=== PATIENT | male | born 1995 | race Two or more races ===

== ENCOUNTER 2017-02-21 03:23 | Emergency (ER) | payer MEDICAID ==
[~2017-02-21] VITALS: Ht 167.6 cm; Wt 79.4 kg
[2017-02-21 04:37] LABS: APPEARANCE,URINE SLIGHTLY CLOUDY; KETONES,URINE NEGATIVE (NEGATIVE); LEUKOCYTE ESTERASE ,URINE 3+ (NEGATIVE); NITRITE,URINE POSITIVE (NEGATIVE); PH,URINE 7 (4.5-8.0); PROTEIN,URINE NEGATIVE (NEGATIVE); UROBILINOGEN,URINE NORMAL MG/DL (0.0-1.0)
[2017-02-21] MEDS ORDERED: Lidocaine 1% MPF 10mg/ml 5ml IM ONE (04:45)
[2017-02-21] MEDS ORDERED: Azithromycin 250mg tab ORAL ONE (04:45)
[2017-02-21 04:49] LABS: BACTERIA,URINE MANY /HPF; SQUAMOUS EPITHELIAL CELL,UR FEW /LPF (NONE/OCC); WBC,URINE TNTC /HPF (0 - 0)
[2017-02-21 05:00] VITALS: BP 118/72
[2017-02-21] MEDS ORDERED: KEFLEX500 MG ORAL (05:10)
[2017-02-21 05:20] VITALS: BP 118/72
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
[2017-02-25] MEDS ORDERED: CIPROFLOXACIN500 M2 ORAL (08:29)
== END 2017-02-21 05:20 | disposition home or self-care (01) ==
LOC: EMR 04:21
DX: N39.0 Urinary tract infection, site not specified (principal); R32 Unspecified urinary incontinence
CPT/HCPCS: 81003; 87086; 87181; 87590; 96372; 99283; J0696; Q0144

== ENCOUNTER 2017-06-17 02:03 | Emergency (ER) | payer MEDICAID ==
[~2017-06-17] VITALS: Ht 167.6 cm; Wt 85.7 kg
[~2017-06-17 02:03] MED LIST: CIPROFLOXACIN500 M2 ORAL; KEFLEX500 MG ORAL
[2017-06-17] MEDS ORDERED: Norco 5mg/325mg tab ORAL ONE (02:30)
[2017-06-17] MEDS ORDERED: HYDROCODON-ACE1 EA15 ORAL (02:31)
--- NOTE | 2017-06-17 02:32 | Emergency Room Report ---
History of Present Illness General Chief Complaint: Male Urogenital Problems Source: Patient Present Illness HPI Is a 21-year-old male who presents with chief complaint of dysuria. Patient has urethral stricture and had dilation done at [facility] today. He was discharged home with a leg bag. He was prescribe Pyridium and Levaquin. He was also prescribed pain medication but it was not filled. He said that the doctor forgot to date the prescription so none was given to him. He presents with chief complaint of burning when he urinates. No fever chills but no nausea no vomiting. Allergies: Coded Allergies: No Known Allergies (Unverified , 02/21/17) Patient History Past Medical History: see triage record, old chart reviewed Past Surgical History: other Pertinent Family History: none Social History: Denies: smoking Immunizations: other Reviewed Nursing Documentation: PMH: Agreed, PSxH: Agreed Nursing Documentation-PMH Past Medical History: No History, Except For Review of Systems Eye: Denies: blurred vision, eye pain ENT: Denies: ear pain, nose congestion, throat swelling Respiratory: Denies: cough, shortness of breath Cardiovascular: Denies: chest pain, palpitations Gastrointestinal: Denies: abdominal pain, diarrhea, nausea, vomiting Genitourinary: Reports: dysuria Musculoskeletal: Denies: back pain, joint pain Skin: Denies: rash Neurological: Denies: headache, numbness Endocrine: Denies: increased thirst, increased urine Hematologic/Lymphatic: Denies: easy bruising All Other Systems: negative except mentioned in HPI Physical Exam Vital Signs Date Time Temp Pulse Resp B/P Pulse Ox O2 Delivery O2 Flow Rate FiO2 06/17/17 02:11 99.3 118 16 118/79 99 Room Air vitals normal except for tachycardia Sp02 EP Interpretation: reviewed, normal General Appearance: well appearing, no apparent distress, alert Head: normocephalic, atraumatic Eyes: bilateral eye EOMI, bilateral eye PERRL ENT: hearing grossly normal, normal pharynx Neck: full range of motion, supple, no meningismus Respiratory: chest non-tender, lungs clear, normal breath sounds Cardiovascular #1: regular rate, rhythm, no murmur Gastrointestinal: normal bowel sounds, non tender, no mass, no organomegaly, no bruit, non-distended Genitourinary: other - [place] intact. No leak. Musculoskeletal: back normal, gait/station normal, normal range of motion Psychiatric: mood/affect normal Skin: warm/dry Medical Decision Making Diagnostic Impression: Primary Impression: Dysuria ER Course Patient with dysuria secondary to new Zur[place]. No evidence of infection. He is on antibiotics already. No evidence of obstruction. We'll prescribe pain medication. We'll discharge home. Last Vital Signs Date Time Temp Pulse Resp B/P Pulse Ox O2 Delivery O2 Flow Rate FiO2 06/17/17 02:11 99.3 118 16 118/79 99 Room Air Status: improved Disposition: HOME, SELF-CARE Condition: Stable Scripts Hydrocodone/Acetaminophen 5-325* (HYDROCODONE/ACETAMINOPHEN 5-325*) 1 Each Tablet 1 TAB ORAL Q6H Y for For Pain, #10 TAB 0 Refills Prov: LUCRETIA RIDDLE M.D. 06/17/17 Referrals: [facility],REFERRING (PCP) Additional Instructions: Followup with urologist as scheduled. Return if symptom worsen. Take antibiotics. LUCRETIA RIDDLE M.D. Jun 17, 2017 02:32
[2017-06-17 02:53] VITALS: BP 118/79
== END 2017-06-17 02:53 | disposition home or self-care (01) ==
LOC: EMR 02:25
DX: T83.84XA Pain due to genitourinary prosthetic devices, implants and grafts, initial encounter (principal); Y84.6 Urinary catheterization as the cause of abnormal reaction of the patient, or of later complication, without mention of misadventure at the time of the procedure; Y92.89 Other specified places as the place of occurrence of the external cause
CPT/HCPCS: 99283

== ENCOUNTER 2017-06-29 | Emergency (ER) | payer MEDICAID ==
[~2017-06-29] VITALS: Ht 170.2 cm; Wt 85.7 kg
[~2017-06-29] MED LIST changes: +HYDROCODON-ACE1 EA15 ORAL
[2017-06-29] MEDS ORDERED: PHENAZOPYRIDIN100 MG ORAL (00:14)
[2017-06-29] MEDS ORDERED: LEVOFLOXACIN500 MG ORAL (00:14)
[2017-06-29 00:31] LABS: APPEARANCE,URINE SLIGHTLY CLOUDY; KETONES,URINE NEGATIVE (NEGATIVE); LEUKOCYTE ESTERASE ,URINE 2+ (NEGATIVE); NITRITE,URINE POSITIVE (NEGATIVE); PH,URINE 7 (4.5-8.0); PROTEIN,URINE 4+ (NEGATIVE); UROBILINOGEN,URINE 4 MG/DL (0.0-1.0)
[2017-06-29 00:40] LABS: BACTERIA,URINE FEW /HPF; RBC,URINE TNTC /HPF (0 - 0)
[2017-06-29 00:43] LABS: ICTOTEST POSITIVE
[2017-06-29] MEDS ORDERED: CIPRO500 MG PO (01:17)
[2017-06-29] MEDS ORDERED: CLOTRIMAZOLE15 GM TOPIC (01:18)
[2017-06-29 01:37] VITALS: BP 149/92
--- NOTE | 2017-06-29 01:40 | Emergency Room Report ---
History of Present Illness General Chief Complaint: Male Urogenital Problems Source: Patient Present Illness HPI 21YOM with "crusts" on penis Has indwelling capone following surgery for stricture last month Was seen in ED on day of surgery for dysuria - was already on Abx at the time He is not clear if still on Abx or not He has Urology followup appointment later today Denies urinary obstruction, abd pain, nausea/vomiting, fever/chills Allergies: Coded Allergies: No Known Allergies (Unverified , 02/21/17) Patient History Past Medical History: none Past Surgical History: other - Urinary stricture surgery Pertinent Family History: none Social History: Denies: alcohol use, drug use, smoking Immunizations: UTD Reviewed Nursing Documentation: PMH: Agreed, PSxH: Agreed Nursing Documentation-PMH Past Medical History: No History, Except For Review of Systems All Other Systems: negative except mentioned in HPI Physical Exam Vital Signs Date Time Temp Pulse Resp B/P Pulse Ox O2 Delivery O2 Flow Rate FiO2 06/29/17 00:07 99.0 82 16 149/92 99 Room Air Sp02 EP Interpretation: reviewed, normal General Appearance: normal inspection, well appearing, no apparent distress, alert, GCS 15, non-toxic Head: normocephalic, atraumatic Eyes: bilateral eye EOMI, bilateral eye PERRL ENT: normal ENT inspection, hearing grossly normal, normal voice Neck: normal inspection, full range of motion, supple, no bony tend Respiratory: normal inspection Cardiovascular #1: regular rate, rhythm, no edema Gastrointestinal: normal inspection, normal bowel sounds, non tender, soft, no guarding, no hernia Genitourinary: other - Capone bag in place, intact. Uncircumcised penis. There is balanitis Musculoskeletal: normal inspection, back normal, normal range of motion, Rayshawn' s Sign negative Neurologic: normal inspection, alert, responsive, speech normal Psychiatric: normal inspection, judgement/insight normal, mood/affect normal Skin: normal inspection, normal color, no rash Medical Decision Making Diagnostic Impression: Primary Impression: UTI (urinary tract infection) Qualified Codes: T83.511D - Infection and inflammatory reaction due to indwelling urethral catheter, subsequent encounter; N39.0 - Urinary tract infection, site not specified Additional Impression: Balanitis ER Course UA grossly infected. Based on past Urine Cx, susceptible to Cipro. Given Rx Also topical cream anti-fungal for balanitis Has Urology followup today DC home Last Vital Signs Date Time Temp Pulse Resp B/P Pulse Ox O2 Delivery O2 Flow Rate FiO2 06/29/17 00:07 99.0 82 16 149/92 99 Room Air Status: improved Disposition: HOME, SELF-CARE Condition: Improved Scripts Clotrimazole* (LOTRIMIN*) 15 Gm Cream..g. 1 APPLIC TOPIC TWICE A DAY for 7 Days, #1 UNIT Prov: KERWIN PLATT M.D. 06/29/17 Ciprofloxacin* (CIPRO*) 500 Mg Tablet 500 MG PO BID for 7 Days, #14 TAB Prov: KERWIN PLATT M.D. 06/29/17 Referrals: [facility],REFERRING (PCP) Patient Instructions: Urinary Tract Infection KERWIN PLATT M.D. Jun 29, 2017 01:40
== END 2017-06-29 01:43 | disposition home or self-care (01) ==
LOC: EMR 00:25
DX: N39.0 Urinary tract infection, site not specified (principal); N48.1 Balanitis
CPT/HCPCS: 80300; 81003; 99283; 99284

== ENCOUNTER 2017-07-01 11:20 | Emergency (ER) | payer MEDICAID ==
[~2017-07-01] VITALS: Ht 167.6 cm; Wt 83.5 kg
[~2017-07-01 11:20] MED LIST changes: +CIPRO500 MG PO; +CLOTRIMAZOLE15 GM TOPIC; +LEVOFLOXACIN500 MG ORAL; +PHENAZOPYRIDIN100 MG ORAL
[2017-07-01] MEDS ORDERED: LACTULOSE20 GM/301 ORAL (12:09)
[2017-07-01 12:16] VITALS: BP 108/70
--- NOTE | 2017-07-02 07:21 | Emergency Room Report ---
History of Present Illness General Chief Complaint: Constipation Source: Patient, Medical Record Present Illness HPI This is a 21-year-old male who presented after increased constipation. Patient recently had surgery. Patient was noted to have a recent urethral stricture surgery. He had been taking narcotic pain medications. Patient had been having some bowel movements however he noted that he was having increased difficulty with a stools. He had been prescribed stool softeners. Patient not been vomiting or having any fever. He denied any pain. Allergies: Coded Allergies: No Known Allergies (Unverified , 02/21/17) Patient History Reviewed Nursing Documentation: PMH: Agreed, PSxH: Agreed Nursing Documentation-PM Past Medical History: No History, Except For Review of Systems All Other Systems: negative except mentioned in HPI Physical Exam Vital Signs Date Time Temp Pulse Resp B/P Pulse Ox O2 Delivery O2 Flow Rate FiO2 07/01/17 11:50 99.0 77 18 114/88 98 Room Air General Appearance: well appearing, no apparent distress, alert, GCS 15 Head: normocephalic, atraumatic ENT: hearing grossly normal, normal voice Neck: full range of motion, supple Respiratory: normal inspection, no respiratory distress, speaking full sentences Gastrointestinal: normal inspection, non tender Musculoskeletal: no calf tenderness Neurologic: normal inspection, alert, oriented x3, cane piler III-XII nml as tested, normal gait Psychiatric: mood/affect normal Skin: no rash Medical Decision Making Diagnostic Impression: Primary Impression: Constipation ER Course Patient presented for abdominal pain. Differential diagnoses included ischemic bowel, appendicitis, perforated viscus, abdominal aortic aneurysm, inferior myocardial infarction, viral gastroenteritis Patient's benign exam and does not appear to require any further imaging or laboratory testing at this time. Patient was given prescription for lactulose due to constipation which is likely opiate induced. The patient is advised to follow up with primary care doctor in 1-2 days. Patient is advised to return if any worsening condition or if any changes in status that are concerning. Last Vital Signs Date Time Temp Pulse Resp B/P Pulse Ox O2 Delivery O2 Flow Rate FiO2 07/01/17 12:16 71 17 108/70 98 Room Air 07/01/17 11:50 99.0 Status: improved Disposition: HOME, SELF-CARE Condition: Improved Scripts Lactulose (LACTULOSE*) 20 Gm/30 Ml Solution 30 ML ORAL THREE TIMES A DAY, #150 ML 0 Refills Prov: Emory Davidson 07/01/17 Patient Instructions: Constipation, Adult Emory Davidson Jul 02, 2017 07:21
== END 2017-07-01 13:16 | disposition home or self-care (01) ==
LOC: EMR 12:06
DX: K59.00 Constipation, unspecified (principal)
CPT/HCPCS: 99283

== ENCOUNTER 2020-06-11 16:28 | Inpatient (IN) | payer MEDICAID ==
[~2020-06-11] VITALS: Ht 167.6 cm; Wt 103.4 kg
[~2020-06-11 16:28] MED LIST changes: +LACTULOSE20 GM/301 ORAL
[2020-06-11 16:32] VITALS: BP 125/81
[2020-06-11] MEDS ORDERED: IBUPROFEN600 M1 ORAL (16:38)
[2020-06-11] MEDS ORDERED: NITROFURANTOIN100 M2 ORAL (16:38)
[2020-06-11] MEDS ORDERED: cefTRIAXone 1 GM in NS 55 ML IVPB ONE (16:45)
--- NOTE | 2020-06-11 17:26 | Diagnostic Imaging Report ---
EXAM: CT Abdomen and Pelvis Without Intravenous Contrast CLINICAL HISTORY: PAIN TECHNIQUE: Axial computed tomography images of the abdomen and pelvis without intravenous contrast. CTDI is 16 mGy and DLP is 904 mGy-cm. One or more of the following dose reduction techniques were used: automated exposure control, adjustment of the mA and/or kV according to patient size, use of iterative reconstruction technique. COMPARISON: No relevant prior studies available. FINDINGS: Lung bases: Unremarkable. ABDOMEN: Liver: Unremarkable. Gallbladder and bile ducts: Unremarkable. Pancreas: Unremarkable. Spleen: Unremarkable. Adrenals: Unremarkable. Kidneys and ureters: Unremarkable. No obstructing stones. No hydronephrosis. Stomach and bowel: Acute diverticulitis of the descending/sigmoid colon. Mild inflammatory changes. No perforation or abscess. PELVIS: Appendix: No findings to suggest acute appendicitis. Bladder: Circumferential mucosal thickening of the bladder as can be seen in setting of cystitis. No stones. Reproductive: Unremarkable as visualized. ABDOMEN and PELVIS: Intraperitoneal space: Mesenteric panniculitis. No free air. No significant fluid collection. Bones/joints: No acute fracture. Soft tissues: Unremarkable. Vasculature: Unremarkable. Lymph nodes: Unremarkable. IMPRESSION: 1. Acute diverticulitis of the descending/sigmoid colon. Mild inflammatory changes. No perforation or abscess. 2. Circumferential mucosal thickening of the bladder as can be seen in setting of cystitis. 3. Mesenteric panniculitis.
[2020-06-11 17:28] LABS: APPEARANCE,URINE CLEAR; BILIRUBIN, URINE NEGATIVE (NEGATIVE); GLUCOSE, URINE (UA) NEGATIVE (NEGATIVE); KETONES,URINE NEGATIVE (NEGATIVE); LEUKOCYTE ESTERASE ,URINE 1+ (NEGATIVE); NITRITE,URINE NEGATIVE (NEGATIVE); PH,URINE 6.5 (4.5-8.0); PROTEIN,URINE NEGATIVE (NEGATIVE); UROBILINOGEN,URINE 1 MG/DL (0.0-1.0)
[2020-06-11 17:31] LABS: EOSINOPHILS % (AUTO) 1.1 % (0.0-3.0); HEMATOCRIT 47.8 % (42.0-52.0); HEMOGLOBIN 15.6 G/DL (14.2-18.0); LYMPHOCYTES % (AUTO) 9.1 % (20.0-45.0); MEAN CORPUSCULAR VOLUME 98 FL (80-99); MONOCYTES % (AUTO) 6.8 % (1.0-10.0); NEUTROPHILS % (AUTO) 82.1 % (45.0-75.0); PLATELET COUNT 256 K/UL (150-450); RED BLOOD COUNT 4.85 M/UL (4.70-6.10); RED CELL DISTRIBUTION WIDTH 12.5 % (11.6-14.8); WHITE BLOOD COUNT 13.2 K/UL (4.8-10.8)
[2020-06-11 17:32] LABS: COLOR,URINE YELLOW
[2020-06-11 17:35] LABS: ANION GAP 7 mmol/L (5-15); BLOOD UREA NITROGEN 9 mg/dL (7-18); CALCIUM 9.6 MG/DL (8.5-10.1); CARBON DIOXIDE 33 MMOL/L (21-32); CHLORIDE 103 MMOL/L (98-107); CREATININE 1.2 MG/DL (0.55-1.30); POTASSIUM 3.9 MMOL/L (3.5-5.1); SODIUM 143 MMOL/L (136-145)
[2020-06-11 17:39] LABS: ALANINE AMINOTRANSFERASE 21 U/L (12-78); ALBUMIN 4.3 G/DL (3.4-5.0); ALBUMIN/GLOBULIN RATIO 1.2 (1.0-2.7); ALKALINE PHOSPHATASE 75 U/L (46-116); ASPARTATE AMINO TRANSFERASE 15 U/L (15-37); BILIRUBIN,TOTAL 0.9 MG/DL (0.2-1.0)
[2020-06-11 17:40] LABS: INR 0.9 (0.9-1.1)
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
[2020-06-11] MEDS ORDERED: metroNIDAZOLE 500mg tab ORAL ONE (18:00)
[2020-06-11] MEDS ORDERED: Morphine Sulfate 4mg/ml Inj (IV USE ONLY) IVP ONE (18:00)
[2020-06-11 18:22] VITALS: BP 126/73
[2020-06-11 20:45] VITALS: BP 126/77
[2020-06-11] MEDS ORDERED: Albuterol/Ipratropium 3ml neb HHN PRN (20:45)
[2020-06-11] MEDS ORDERED: Miralax 17gm pkt ORAL PRN (20:45)
[2020-06-11] MEDS: Cefepime HCl 2 GM in D5W 110 ML IV SCH (22:08)
[2020-06-11] MEDS: Heparin 5000 units/ml inj SUBQ SCH (22:08)
[2020-06-11] MEDS: Vancomycin 1.5gm/NS Premix IVPB SCH (23:00)
[2020-06-12] MEDS ORDERED: Vancomycin 1 GM in D5W 275 ML IV SCH (00:30)
[2020-06-12 00:40] LABS: APPEARANCE,URINE CLEAR; BILIRUBIN, URINE NEGATIVE (NEGATIVE); COLOR,URINE PALE YELLOW; GLUCOSE, URINE (UA) NEGATIVE (NEGATIVE); KETONES,URINE NEGATIVE (NEGATIVE); LEUKOCYTE ESTERASE ,URINE NEGATIVE (NEGATIVE); NITRITE,URINE NEGATIVE (NEGATIVE); PH,URINE 7 (4.5-8.0); PROTEIN,URINE NEGATIVE (NEGATIVE); UROBILINOGEN,URINE NORMAL MG/DL (0.0-1.0)
[2020-06-12 04:00] VITALS: BP 124/76
[2020-06-12 06:22] LABS: BASOPHILS % (AUTO) 0.7 % (0.0-2.0); EOSINOPHILS % (AUTO) 0.4 % (0.0-3.0); HEMATOCRIT 43.2 % (42.0-52.0); HEMOGLOBIN 14.5 G/DL (14.2-18.0); LYMPHOCYTES % (AUTO) 14.9 % (20.0-45.0); MEAN CORPUSCULAR VOLUME 98 FL (80-99); MONOCYTES % (AUTO) 7.9 % (1.0-10.0); NEUTROPHILS % (AUTO) 76.1 % (45.0-75.0); PLATELET COUNT 235 K/UL (150-450); RED CELL DISTRIBUTION WIDTH 11.8 % (11.6-14.8); WHITE BLOOD COUNT 13.7 K/UL (4.8-10.8)
[2020-06-12 07:14] LABS: ALANINE AMINOTRANSFERASE 27 U/L (12-78); ALBUMIN 3.6 G/DL (3.4-5.0); ALKALINE PHOSPHATASE 63 U/L (46-116); ANION GAP 8 mmol/L (5-15); ASPARTATE AMINO TRANSFERASE 15 U/L (15-37); BILIRUBIN,TOTAL 1.1 MG/DL (0.2-1.0); BLOOD UREA NITROGEN 9 mg/dL (7-18); CARBON DIOXIDE 31 MMOL/L (21-32); CHLORIDE 104 MMOL/L (98-107); CREATININE 1.1 MG/DL (0.55-1.30); POTASSIUM 3.7 MMOL/L (3.5-5.1); SODIUM 143 MMOL/L (136-145)
[2020-06-12 08:00] VITALS: BP 104/64
[2020-06-12 08:10] LABS: BILIRUBIN,DIRECT 0.2 MG/DL (0.0-0.3)
[2020-06-12] MEDS: Cefepime HCl 2 GM in D5W 110 ML IV SCH (09:14)
[2020-06-12] MEDS: Heparin 5000 units/ml inj SUBQ SCH ×2 (09:18→20:26)
[2020-06-12] MEDS: Vancomycin 1.5gm/NS Premix IVPB SCH (10:56)
[2020-06-12 12:00] VITALS: BP 103/56
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
[2020-06-12 16:00] VITALS: BP_SYST 102; BP_SYST 137; BP_DIAS 66; BP_DIAS 91
--- NOTE | 2020-06-12 19:38 | History & Physical ---
History and Physical History & Physicial Dictated for Int Med-Dr. Barrera no. [id number]. Noah Hanson MD Jun 12, 2020 19:38
[2020-06-12 20:00] VITALS: BP 119/60
[2020-06-12] MEDS: cefTRIAXone 2 GM in D5W 55 ML IVPB SCH (20:25)
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
[2020-06-13] VITALS: BP 110/60
[2020-06-13 04:00] VITALS: BP 135/91
[2020-06-13 06:19] LABS: ANION GAP 7 mmol/L (5-15); BLOOD UREA NITROGEN 9 mg/dL (7-18); CALCIUM 9.3 MG/DL (8.5-10.1); CARBON DIOXIDE 32 MMOL/L (21-32); CHLORIDE 103 MMOL/L (98-107); CREATININE 1.1 MG/DL (0.55-1.30); POTASSIUM 3.6 MMOL/L (3.5-5.1); SODIUM 142 MMOL/L (136-145)
[2020-06-13 06:24] LABS: BASOPHILS % (AUTO) 0.7 % (0.0-2.0); EOSINOPHILS % (AUTO) 1.9 % (0.0-3.0); HEMATOCRIT 43.9 % (42.0-52.0); HEMOGLOBIN 14.6 G/DL (14.2-18.0); LYMPHOCYTES % (AUTO) 21.9 % (20.0-45.0); MEAN CORPUSCULAR VOLUME 98 FL (80-99); MONOCYTES % (AUTO) 7.3 % (1.0-10.0); NEUTROPHILS % (AUTO) 68.1 % (45.0-75.0); PLATELET COUNT 240 K/UL (150-450); RED BLOOD COUNT 4.49 M/UL (4.70-6.10); RED CELL DISTRIBUTION WIDTH 11.8 % (11.6-14.8); WHITE BLOOD COUNT 9.9 K/UL (4.8-10.8)
[2020-06-13 08:00] VITALS: BP 130/76
[2020-06-13] MEDS: Heparin 5000 units/ml inj SUBQ SCH ×2 (08:38→20:41)
--- NOTE | 2020-06-13 13:02 | General Progress Note ---
Assessment/Plan Problem List: (1) UTI (urinary tract infection) ICD Codes: N39.0 - Urinary tract infection, site not specified SNOMED: 11066860 (2) Sigmoid diverticulitis ICD Codes: K57.32 - Diverticulitis of large intestine without perforation or abscess without bleeding SNOMED: 983281359 (3) Obesity ICD Codes: E66.9 - Obesity, unspecified SNOMED: 404805438, 044157248 (4) Cystitis ICD Codes: N30.90 - Cystitis, unspecified without hematuria SNOMED: 54375232 (5) Panniculitis ICD Codes: M79.3 - Panniculitis, unspecified SNOMED: 09320030 Assessment/Plan: abx pain control ivf needs out patient colonoscopy in 8 weeks Subjective ROS Limited/Unobtainable: Yes Allergies: Coded Allergies: No Known Allergies (Unverified , 02/21/17) Objective Last 24 Hour Vital Signs Date Time Temp Pulse Resp B/P (MAP) Pulse Ox O2 Delivery O2 Flow Rate FiO2 06/13/20 09:00 Room Air 06/13/20 08:00 97.3 70 20 130/76 (94) 95 06/13/20 04:00 98.6 71 20 135/91 (106) 97 06/13/20 00:00 98.0 70 20 110/60 (77) 97 06/12/20 21:00 Room Air 06/12/20 20:00 98.4 68 20 119/60 (79) 98 06/12/20 16:00 98.7 66 20 102/66 (78) 98 Intake and Output 06/12/20 06/13/20 19:00 07:00 Intake Total 120 ml 675 ml Balance 120 ml 675 ml Intake Oral 420 ml IV Total 255 ml Other 120 ml # Voids 6 Laboratory Tests 06/13/20 05:10: White Blood Count 9.9, Red Blood Count 4.49L, Hemoglobin 14.6, Hematocrit 43.9, Mean Corpuscular Volume 98, Mean Corpuscular Hemoglobin 32.5H, Mean Corpuscular Hemoglobin Concent 33.2, Red Cell Distribution Width 11.8, Platelet Count 240, Mean Platelet Volume 7.8, Neutrophils (%) (Auto) 68.1, Lymphocytes (%) (Auto) 21.9, Monocytes (%) (Auto) 7.3, Eosinophils (%) (Auto) 1.9, Basophils (%) (Auto ) 0.7, Sodium Level 142, Potassium Level 3.6, Chloride Level 103, Carbon Dioxide Level 32, Anion Gap 7, Blood Urea Nitrogen 9, Creatinine 1.1, Estimat Glomerular Filtration Rate > 60, Glucose Level 108H, Calcium Level 9.3 Height (Feet): 5 Height (Inches): 6.00 Weight (Pounds): 228 General Appearance: alert EENT: PERRL/EOMI Neck: supple Cardiovascular: normal rate Respiratory/Chest: decreased breath sounds Abdomen: normal bowel sounds, non tender, soft Extremities: non-tender Bunny Banegas MD Jun 13, 2020 13:02
--- NOTE | 2020-06-13 13:25 | Diagnostic Imaging Report ---
Indication: Right hand pain in forearm pain, swelling, numbness Technique: Grayscale and duplex images of the bilateral upper extremity veins Comparison: none Findings: Bilaterally, grayscale and duplex images demonstrate no evidence of intraluminal thrombus. Normal phasic Doppler waveforms. Normal compressibility. Note that the right forearm cephalic vein that contains an IV cannula is also patent. Impression: No evidence of upper extremity venous thrombus, bilaterally No evidence of thrombosis related to upper extremity IV cannula on the right
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
[2020-06-13 16:00] VITALS: BP 113/60
--- NOTE | 2020-06-13 17:30 | Internal Med Progress Note ---
Subjective Date of Service: Jun 13, 2020 Physician Name Noah Hanson Attending Physician Justo Barrera MD Current Medications Medications (Trade) Dose Ordered Sig/Leroy Route PRN Reason Start Time Stop Time Status Last Admin Dose Admin Acetaminophen (Tylenol) 650 mg Q4H PRN ORAL fever (T>100.5F) 06/11/20 20:45 07/11/20 20:44 06/12/20 01:25 Albuterol/ Ipratropium (Albuterol/ Ipratropium) 3 ml Q4H PRN HHN Shortness of Breath 06/11/20 20:45 06/16/20 20:44 Ceftriaxone Sodium 2 gm/ Dextrose 55 ml @ 110 mls/hr Q24H IVPB 06/12/20 21:00 06/19/20 20:59 06/12/20 20:25 Heparin Sodium (Porcine) (Heparin 5000 units/ml) 5,000 units EVERY 12 HOURS SUBQ 06/11/20 21:00 07/26/20 20:59 06/13/20 08:38 Metronidazole 100 ml @ 100 mls/hr Q8HR IVPB 06/12/20 14:15 06/19/20 14:14 06/13/20 13:58 Ondansetron HCl (Zofran) 4 mg Q6H PRN IVP Nausea & Vomiting 06/11/20 20:45 07/11/20 20:44 Polyethylene Glycol (Miralax) 17 gm DAILYPRN PRN ORAL Constipation 06/11/20 20:45 07/11/20 20:44 06/13/20 16:53 Temazepam (Restoril) 15 mg HSPRN PRN ORAL Insomnia 06/11/20 20:45 06/18/20 20:44 Allergies: Coded Allergies: No Known Allergies (Unverified , 02/21/17) ROS Limited/Unobtainable: No Constitutional: Reports: no symptoms HEENT: Reports: no symptoms Cardiovascular: Reports: no symptoms Respiratory: Reports: no symptoms Gastrointestinal/Abdominal: Reports: abdominal pain Genitourinary: Reports: no symptoms Neurologic/Psychiatric: Reports: no symptoms Subjective 24 YO M admitted with abdominal pain. Now diverticulitis. Cover for Int Ady Barrera Objective Last Vital Signs Date Time Temp Pulse Resp B/P (MAP) Pulse Ox O2 Delivery O2 Flow Rate FiO2 06/13/20 16:00 97.4 88 20 113/60 (77) 98 06/13/20 09:00 Room Air Laboratory Tests Test 06/13/20 05:10 White Blood Count 9.9 K/UL (4.8-10.8) Red Blood Count 4.49 M/UL (4.70-6.10) L Hemoglobin 14.6 G/DL (14.2-18.0) Hematocrit 43.9 % (42.0-52.0) Mean Corpuscular Volume 98 FL (80-99) Mean Corpuscular Hemoglobin 32.5 PG (27.0-31.0) H Mean Corpuscular Hemoglobin Concent 33.2 G/DL (32.0-36.0) Red Cell Distribution Width 11.8 % (11.6-14.8) Platelet Count 240 K/UL (150-450) Mean Platelet Volume 7.8 FL (6.5-10.1) Neutrophils (%) (Auto) 68.1 % (45.0-75.0) Lymphocytes (%) (Auto) 21.9 % (20.0-45.0) Monocytes (%) (Auto) 7.3 % (1.0-10.0) Eosinophils (%) (Auto) 1.9 % (0.0-3.0) Basophils (%) (Auto) 0.7 % (0.0-2.0) Sodium Level 142 MMOL/L (136-145) Potassium Level 3.6 MMOL/L (3.5-5.1) Chloride Level 103 MMOL/L (98-107) Carbon Dioxide Level 32 MMOL/L (21-32) Anion Gap 7 mmol/L (5-15) Blood Urea Nitrogen 9 mg/dL (7-18) Creatinine 1.1 MG/DL (0.55-1.30) Estimat Glomerular Filtration Rate > 60 mL/min (>60) Glucose Level 108 MG/DL (74-106) H Calcium Level 9.3 MG/DL (8.5-10.1) Microbiology Date/Time Source Procedure Growth Status 06/11/20 22:20 Blood Blood Culture - Preliminary NO GROWTH AFTER 24 HOURS Resulted 06/11/20 22:15 Blood Blood Culture - Preliminary NO GROWTH AFTER 24 HOURS Resulted 06/12/20 00:30 Indwelling Cath Urine Culture - Preliminary NO GROWTH AFTER 24 HOURS Resulted 06/11/20 17:15 Urine,Clean Catch Urine Culture - Preliminary NO GROWTH AFTER 24 HOURS Resulted Intake and Output 06/12/20 06/13/20 19:00 07:00 Intake Total 120 ml 675 ml Balance 120 ml 675 ml Intake Oral 420 ml IV Total 255 ml Other 120 ml # Voids 6 Objective PHYSICAL EXAMINATION: GENERAL: The patient is well-developed and well-nourished male, in no apparent distress. HEENT: Eyes, pupils are equal and responsive to light and accommodation. Extraocular movements are intact. NECK: Supple without lymphadenopathy. CHEST: Lungs are clear to auscultation bilaterally without wheezes or rales. CARDIOVASCULAR: Regular rhythm and rate. S1, S2 normal without murmurs, rubs, or gallops. ABDOMEN: Soft, nontender, with positive bowel sounds. There is voluntary guarding on the left flank. Otherwise, without rebound or guarding noted. EXTREMITIES: Negative for clubbing, cyanosis, or edema. RECTAL/GENITAL: Not performed. NEUROLOGICAL: Cranial nerves II through XII are grossly intact without focal deficits. Motor strength is 5/5 bilaterally. Deep tendon reflexes are 2+ plantar. Assessment/Plan Assessment/Plan ASSESSMENT: This is a 24-year-old male. 1. Left flank pain. 2. Acute diverticulitis. 3. Acute mesenteric panniculitis. 4. History of frequent urinary tract infection. 5. History urethral stricture. TREATMENT: 1. Diverticulitis/mesenteric panniculitis. An Infectious Disease consultation has been obtained with Dr. Enciso. The patient is currently on ceftriaxone and Flagyl. We will follow recommendations of Infectious Diseases. A Gastroenterology consultation obtained with Dr. Bunny Banegas. The patient will require colonoscopy as an outpatient in 8 weeks per GI. 2. Frequent urinary tract infection. The patient is followed as an outpatient by Dr. Bruce with Urology. 3. History of urethral stricture. As above the patient is followed as an outpatient by Dr. Bruce. Noah Hanson MD Jun 13, 2020 17:29
[2020-06-13 20:00] VITALS: BP 125/68
[2020-06-13] MEDS: cefTRIAXone 2 GM in D5W 55 ML IVPB SCH (20:43)
[2020-06-14] VITALS: BP 121/71
[2020-06-14 05:50] LABS: BASOPHILS % (AUTO) 0.8 % (0.0-2.0); HEMATOCRIT 47.8 % (42.0-52.0); HEMOGLOBIN 15.6 G/DL (14.2-18.0); LYMPHOCYTES % (AUTO) 21.8 % (20.0-45.0); MEAN CORPUSCULAR VOLUME 98 FL (80-99); MONOCYTES % (AUTO) 6.3 % (1.0-10.0); PLATELET COUNT 275 K/UL (150-450); RED BLOOD COUNT 4.88 M/UL (4.70-6.10); RED CELL DISTRIBUTION WIDTH 11.5 % (11.6-14.8); WHITE BLOOD COUNT 11.8 K/UL (4.8-10.8)
[2020-06-14 05:55] LABS: ANION GAP 4 mmol/L (5-15); BLOOD UREA NITROGEN 12 mg/dL (7-18); CALCIUM 9.8 MG/DL (8.5-10.1); CARBON DIOXIDE 34 MMOL/L (21-32); CHLORIDE 102 MMOL/L (98-107); CREATININE 1.1 MG/DL (0.55-1.30); POTASSIUM 3.6 MMOL/L (3.5-5.1); SODIUM 140 MMOL/L (136-145)
[2020-06-14 08:00] VITALS: BP 110/71
[2020-06-14] MEDS: Heparin 5000 units/ml inj SUBQ SCH ×2 (08:14→22:14)
--- NOTE | 2020-06-14 10:11 | General Progress Note ---
Assessment/Plan Problem List: (1) UTI (urinary tract infection) ICD Codes: N39.0 - Urinary tract infection, site not specified SNOMED: 40901701 (2) Sigmoid diverticulitis ICD Codes: K57.32 - Diverticulitis of large intestine without perforation or abscess without bleeding SNOMED: 006545986 (3) Obesity ICD Codes: E66.9 - Obesity, unspecified SNOMED: 084832545, 968800568 (4) Cystitis ICD Codes: N30.90 - Cystitis, unspecified without hematuria SNOMED: 72555496 (5) Panniculitis ICD Codes: M79.3 - Panniculitis, unspecified SNOMED: 00887337 Assessment/Plan: abx pain control had a good BM needs out patient colonoscopy in 8 weeks Subjective ROS Limited/Unobtainable: Yes Allergies: Coded Allergies: No Known Allergies (Unverified , 02/21/17) Objective Last 24 Hour Vital Signs Date Time Temp Pulse Resp B/P (MAP) Pulse Ox O2 Delivery O2 Flow Rate FiO2 06/14/20 08:00 98.4 65 21 110/71 (84) 98 06/14/20 00:00 99.0 70 16 121/71 (88) 98 06/13/20 21:00 Room Air 06/13/20 20:00 98.5 67 18 125/68 (87) 97 06/13/20 16:00 97.4 88 20 113/60 (77) 98 Intake and Output 06/13/20 06/14/20 18:59 06:59 Intake Total 100 ml 400 ml Balance 100 ml 400 ml Intake Oral 400 ml IV Total 100 ml # Voids 6 # Bowel Movements 1 Laboratory Tests 06/14/20 04:40: White Blood Count 11.8H, Red Blood Count 4.88, Hemoglobin 15.6, Hematocrit 47.8 , Mean Corpuscular Volume 98, Mean Corpuscular Hemoglobin 31.9H, Mean Corpuscular Hemoglobin Concent 32.6, Red Cell Distribution Width 11.5L, Platelet Count 275, Mean Platelet Volume 7.6, Neutrophils (%) (Auto) 69.0, Lymphocytes (%) (Auto) 21.8, Monocytes (%) (Auto) 6.3, Eosinophils (%) (Auto) 2.0, Basophils (%) (Auto) 0.8, Sodium Level 140, Potassium Level 3.6, Chloride Level 102, Carbon Dioxide Level 34H, Anion Gap 4L, Blood Urea Nitrogen 12, Creatinine 1.1, Estimat Glomerular Filtration Rate > 60, Glucose Level 89, Calcium Level 9.8 Height (Feet): 5 Height (Inches): 6.00 Weight (Pounds): 228 General Appearance: alert EENT: normal ENT inspection Neck: supple Cardiovascular: normal rate Respiratory/Chest: decreased breath sounds Abdomen: normal bowel sounds, non tender, soft Extremities: non-tender Bunny Banegas MD Jun 14, 2020 10:10
[2020-06-14 12:00] VITALS: BP 117/73
--- NOTE | 2020-06-14 12:49 | Internal Med Progress Note ---
Subjective Date of Service: Jun 14, 2020 Physician Name Noah Hanson Attending Physician Justo Barrera MD Current Medications Medications (Trade) Dose Ordered Sig/Leroy Route PRN Reason Start Time Stop Time Status Last Admin Dose Admin Acetaminophen (Tylenol) 650 mg Q4H PRN ORAL fever (T>100.5F) 06/11/20 20:45 07/11/20 20:44 06/14/20 04:46 Albuterol/ Ipratropium (Albuterol/ Ipratropium) 3 ml Q4H PRN HHN Shortness of Breath 06/11/20 20:45 06/16/20 20:44 Ceftriaxone Sodium 2 gm/ Dextrose 55 ml @ 110 mls/hr Q24H IVPB 06/12/20 21:00 06/19/20 20:59 06/13/20 20:43 Heparin Sodium (Porcine) (Heparin 5000 units/ml) 5,000 units EVERY 12 HOURS SUBQ 06/11/20 21:00 07/26/20 20:59 06/14/20 08:14 Metronidazole 100 ml @ 100 mls/hr Q8HR IVPB 06/12/20 14:15 06/19/20 14:14 06/14/20 05:24 Ondansetron HCl (Zofran) 4 mg Q6H PRN IVP Nausea & Vomiting 06/11/20 20:45 07/11/20 20:44 Polyethylene Glycol (Miralax) 17 gm DAILYPRN PRN ORAL Constipation 06/11/20 20:45 07/11/20 20:44 06/13/20 16:53 Temazepam (Restoril) 15 mg HSPRN PRN ORAL Insomnia 06/11/20 20:45 06/18/20 20:44 Allergies: Coded Allergies: No Known Allergies (Unverified , 02/21/17) ROS Limited/Unobtainable: No Constitutional: Reports: no symptoms HEENT: Reports: no symptoms Cardiovascular: Reports: no symptoms Respiratory: Reports: no symptoms Gastrointestinal/Abdominal: Reports: abdominal pain Genitourinary: Reports: no symptoms Neurologic/Psychiatric: Reports: no symptoms Subjective 24 YO M admitted with abdominal pain. Now diverticulitis. Cover for Int José Miguel- Dr Barrera Objective Last Vital Signs Date Time Temp Pulse Resp B/P (MAP) Pulse Ox O2 Delivery O2 Flow Rate FiO2 06/14/20 12:00 98.1 70 19 117/73 (88) 96 06/14/20 09:00 Room Air Laboratory Tests Test 06/14/20 04:40 White Blood Count 11.8 K/UL (4.8-10.8) H Red Blood Count 4.88 M/UL (4.70-6.10) Hemoglobin 15.6 G/DL (14.2-18.0) Hematocrit 47.8 % (42.0-52.0) Mean Corpuscular Volume 98 FL (80-99) Mean Corpuscular Hemoglobin 31.9 PG (27.0-31.0) H Mean Corpuscular Hemoglobin Concent 32.6 G/DL (32.0-36.0) Red Cell Distribution Width 11.5 % (11.6-14.8) L Platelet Count 275 K/UL (150-450) Mean Platelet Volume 7.6 FL (6.5-10.1) Neutrophils (%) (Auto) 69.0 % (45.0-75.0) Lymphocytes (%) (Auto) 21.8 % (20.0-45.0) Monocytes (%) (Auto) 6.3 % (1.0-10.0) Eosinophils (%) (Auto) 2.0 % (0.0-3.0) Basophils (%) (Auto) 0.8 % (0.0-2.0) Sodium Level 140 MMOL/L (136-145) Potassium Level 3.6 MMOL/L (3.5-5.1) Chloride Level 102 MMOL/L (98-107) Carbon Dioxide Level 34 MMOL/L (21-32) H Anion Gap 4 mmol/L (5-15) L Blood Urea Nitrogen 12 mg/dL (7-18) Creatinine 1.1 MG/DL (0.55-1.30) Estimat Glomerular Filtration Rate > 60 mL/min (>60) Glucose Level 89 MG/DL (74-106) Calcium Level 9.8 MG/DL (8.5-10.1) Microbiology Date/Time Source Procedure Growth Status 06/11/20 22:20 Blood Blood Culture - Preliminary NO GROWTH AFTER 48 HOURS Resulted 06/11/20 22:15 Blood Blood Culture - Preliminary NO GROWTH AFTER 48 HOURS Resulted 06/12/20 00:30 Indwelling Cath Urine Culture - Final NO GROWTH AFTER 48 HOURS Complete 06/11/20 17:15 Urine,Clean Catch Urine Culture - Final NO GROWTH AFTER 48 HOURS Complete Intake and Output 06/13/20 06/14/20 19:00 07:00 Intake Total 100 ml 400 ml Balance 100 ml 400 ml Intake Oral 400 ml IV Total 100 ml # Voids 6 # Bowel Movements 1 Objective PHYSICAL EXAMINATION: GENERAL: The patient is well-developed and well-nourished male, in no apparent distress. HEENT: Eyes, pupils are equal and responsive to light and accommodation. Extraocular movements are intact. NECK: Supple without lymphadenopathy. CHEST: Lungs are clear to auscultation bilaterally without wheezes or rales. CARDIOVASCULAR: Regular rhythm and rate. S1, S2 normal without murmurs, rubs, or gallops. ABDOMEN: Soft, nontender, with positive bowel sounds. There is voluntary guarding on the left flank. Otherwise, without rebound or guarding noted. EXTREMITIES: Negative for clubbing, cyanosis, or edema. RECTAL/GENITAL: Not performed. NEUROLOGICAL: Cranial nerves II through XII are grossly intact without focal deficits. Motor strength is 5/5 bilaterally. Deep tendon reflexes are 2+ plantar. Assessment/Plan Assessment/Plan ASSESSMENT: This is a 24-year-old male. 1. Left flank pain. 2. Acute diverticulitis. 3. Acute mesenteric panniculitis. 4. History of frequent urinary tract infection. 5. History urethral stricture. TREATMENT: 1. Diverticulitis/mesenteric panniculitis. An Infectious Disease consultation has been obtained with Dr. Enciso. The patient is currently on ceftriaxone and Flagyl. We will follow recommendations of Infectious Diseases. A Gastroenterology consultation obtained with Dr. Bunny Banegas. The patient will require colonoscopy as an outpatient in 8 weeks per GI. 2. Frequent urinary tract infection. The patient is followed as an outpatient by Dr. Bruce with Urology. 3. History of urethral stricture. As above the patient is followed as an outpatient by Dr. Bruce. Noah Hanson MD Jun 14, 2020 12:49
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
[2020-06-14 16:00] VITALS: BP 133/66
[2020-06-14 20:00] VITALS: BP 105/65
[2020-06-14] MEDS: cefTRIAXone 2 GM in D5W 55 ML IVPB SCH (22:11)
[2020-06-15] VITALS: BP 139/63
[2020-06-15 04:00] VITALS: BP 113/68
[2020-06-15 05:52] LABS: BASOPHILS % (AUTO) 0.8 % (0.0-2.0); EOSINOPHILS % (AUTO) 2.1 % (0.0-3.0); HEMATOCRIT 42.2 % (42.0-52.0); HEMOGLOBIN 13.9 G/DL (14.2-18.0); LYMPHOCYTES % (AUTO) 20.7 % (20.0-45.0); MEAN CORPUSCULAR VOLUME 97 FL (80-99); MONOCYTES % (AUTO) 6.8 % (1.0-10.0); NEUTROPHILS % (AUTO) 69.7 % (45.0-75.0); PLATELET COUNT 264 K/UL (150-450); RED BLOOD COUNT 4.34 M/UL (4.70-6.10); RED CELL DISTRIBUTION WIDTH 11.1 % (11.6-14.8); WHITE BLOOD COUNT 10.5 K/UL (4.8-10.8)
[2020-06-15 06:21] LABS: ANION GAP 5 mmol/L (5-15); BLOOD UREA NITROGEN 10 mg/dL (7-18); CALCIUM 9.5 MG/DL (8.5-10.1); CARBON DIOXIDE 33 MMOL/L (21-32); CHLORIDE 103 MMOL/L (98-107); CREATININE 1.2 MG/DL (0.55-1.30); POTASSIUM 3.4 MMOL/L (3.5-5.1); SODIUM 140 MMOL/L (136-145)
[2020-06-15 08:00] VITALS: BP 121/65
--- NOTE | 2020-06-15 08:06 | General Progress Note ---
Assessment/Plan Problem List: (1) UTI (urinary tract infection) ICD Codes: N39.0 - Urinary tract infection, site not specified SNOMED: 87326650 (2) Sigmoid diverticulitis ICD Codes: K57.32 - Diverticulitis of large intestine without perforation or abscess without bleeding SNOMED: 995955655 (3) Obesity ICD Codes: E66.9 - Obesity, unspecified SNOMED: 861355054, 300319598 (4) Cystitis ICD Codes: N30.90 - Cystitis, unspecified without hematuria SNOMED: 10123610 (5) Panniculitis ICD Codes: M79.3 - Panniculitis, unspecified SNOMED: 72775265 Assessment/Plan: abx per ID fu urology recs pain control had a good BM yesterday needs out patient colonoscopy in 8 weeks Subjective Allergies: Coded Allergies: No Known Allergies (Unverified , 02/21/17) Objective Last 24 Hour Vital Signs Date Time Temp Pulse Resp B/P (MAP) Pulse Ox O2 Delivery O2 Flow Rate FiO2 06/15/20 06:33 65 16 96 Room Air 21 06/15/20 04:00 98.8 66 20 113/68 (83) 98 06/15/20 00:00 98.8 67 18 139/63 (88) 100 06/14/20 21:00 Room Air 06/14/20 20:00 98.3 79 18 105/65 (78) 95 06/14/20 16:00 99.3 67 20 133/66 (88) 98 06/14/20 12:00 98.1 70 19 117/73 (88) 96 06/14/20 09:00 Room Air Intake and Output 06/14/20 06/15/20 19:00 07:00 Intake Total 480 ml 700 ml Balance 480 ml 700 ml Intake Oral 480 ml 700 ml Laboratory Tests 06/15/20 04:40: White Blood Count 10.5, Red Blood Count 4.34L, Hemoglobin 13.9L, Hematocrit 42.2 , Mean Corpuscular Volume 97, Mean Corpuscular Hemoglobin 32.1H, Mean Corpuscular Hemoglobin Concent 32.9, Red Cell Distribution Width 11.1L, Platelet Count 264, Mean Platelet Volume 7.8, Neutrophils (%) (Auto) 69.7, Lymphocytes (%) (Auto) 20.7, Monocytes (%) (Auto) 6.8, Eosinophils (%) (Auto) 2.1, Basophils (%) (Auto) 0.8, Sodium Level 140, Potassium Level 3.4L, Chloride Level 103, Carbon Dioxide Level 33H, Anion Gap 5, Blood Urea Nitrogen 10, Creatinine 1.2, Estimat Glomerular Filtration Rate > 60, Glucose Level 108H, Calcium Level 9.5 Height (Feet): 5 Height (Inches): 6.00 Weight (Pounds): 228 General Appearance: alert EENT: normal ENT inspection Neck: normal alignment Cardiovascular: normal rate Respiratory/Chest: lungs clear Abdomen: normal bowel sounds, non tender, soft Extremities: non-tender Bunny Banegas MD Jun 15, 2020 08:06
[2020-06-15] MEDS: Heparin 5000 units/ml inj SUBQ SCH (08:47)
[2020-06-15 12:00] VITALS: BP 140/84
--- NOTE | 2020-06-15 13:32 | Internal Med Progress Note ---
Subjective Date of Service: Jun 15, 2020 Physician Name Noah Hanson Attending Physician Justo Barrera MD Current Medications Medications (Trade) Dose Ordered Sig/Leroy Route PRN Reason Start Time Stop Time Status Last Admin Dose Admin Acetaminophen (Tylenol) 650 mg Q4H PRN ORAL fever (T>100.5F) 06/11/20 20:45 07/11/20 20:44 06/14/20 22:13 Albuterol/ Ipratropium (Albuterol/ Ipratropium) 3 ml Q4H PRN HHN Shortness of Breath 06/11/20 20:45 06/16/20 20:44 Ceftriaxone Sodium 2 gm/ Dextrose 55 ml @ 110 mls/hr Q24H IVPB 06/12/20 21:00 06/19/20 20:59 06/14/20 22:11 Heparin Sodium (Porcine) (Heparin 5000 units/ml) 5,000 units EVERY 12 HOURS SUBQ 06/11/20 21:00 07/26/20 20:59 06/15/20 08:47 Metronidazole 100 ml @ 100 mls/hr Q8HR IVPB 06/12/20 14:15 06/19/20 14:14 06/15/20 05:00 Ondansetron HCl (Zofran) 4 mg Q6H PRN IVP Nausea & Vomiting 06/11/20 20:45 07/11/20 20:44 Polyethylene Glycol (Miralax) 17 gm DAILYPRN PRN ORAL Constipation 06/11/20 20:45 07/11/20 20:44 06/13/20 16:53 Temazepam (Restoril) 15 mg HSPRN PRN ORAL Insomnia 06/11/20 20:45 06/18/20 20:44 Allergies: Coded Allergies: No Known Allergies (Unverified , 02/21/17) ROS Limited/Unobtainable: No Subjective 24 YO M admitted with abdominal pain. Now diverticulitis. Cover for Int José Miguel- Dr Barrera Objective Last Vital Signs Date Time Temp Pulse Resp B/P (MAP) Pulse Ox O2 Delivery O2 Flow Rate FiO2 06/15/20 09:00 Room Air 06/15/20 08:00 98.5 67 16 121/65 (83) 95 06/15/20 06:33 21 Laboratory Tests Test 06/15/20 04:40 White Blood Count 10.5 K/UL (4.8-10.8) Red Blood Count 4.34 M/UL (4.70-6.10) L Hemoglobin 13.9 G/DL (14.2-18.0) L Hematocrit 42.2 % (42.0-52.0) Mean Corpuscular Volume 97 FL (80-99) Mean Corpuscular Hemoglobin 32.1 PG (27.0-31.0) H Mean Corpuscular Hemoglobin Concent 32.9 G/DL (32.0-36.0) Red Cell Distribution Width 11.1 % (11.6-14.8) L Platelet Count 264 K/UL (150-450) Mean Platelet Volume 7.8 FL (6.5-10.1) Neutrophils (%) (Auto) 69.7 % (45.0-75.0) Lymphocytes (%) (Auto) 20.7 % (20.0-45.0) Monocytes (%) (Auto) 6.8 % (1.0-10.0) Eosinophils (%) (Auto) 2.1 % (0.0-3.0) Basophils (%) (Auto) 0.8 % (0.0-2.0) Sodium Level 140 MMOL/L (136-145) Potassium Level 3.4 MMOL/L (3.5-5.1) L Chloride Level 103 MMOL/L (98-107) Carbon Dioxide Level 33 MMOL/L (21-32) H Anion Gap 5 mmol/L (5-15) Blood Urea Nitrogen 10 mg/dL (7-18) Creatinine 1.2 MG/DL (0.55-1.30) Estimat Glomerular Filtration Rate > 60 mL/min (>60) Glucose Level 108 MG/DL (74-106) H Calcium Level 9.5 MG/DL (8.5-10.1) Intake and Output 06/14/20 06/15/20 19:00 07:00 Intake Total 480 ml 700 ml Balance 480 ml 700 ml Intake Oral 480 ml 700 ml Objective PHYSICAL EXAMINATION: GENERAL: The patient is well-developed and well-nourished male, in no apparent distress. HEENT: Eyes, pupils are equal and responsive to light and accommodation. Extraocular movements are intact. NECK: Supple without lymphadenopathy. CHEST: Lungs are clear to auscultation bilaterally without wheezes or rales. CARDIOVASCULAR: Regular rhythm and rate. S1, S2 normal without murmurs, rubs, or gallops. ABDOMEN: Soft, nontender, with positive bowel sounds. There is voluntary guarding on the left flank. Otherwise, without rebound or guarding noted. EXTREMITIES: Negative for clubbing, cyanosis, or edema. RECTAL/GENITAL: Not performed. NEUROLOGICAL: Cranial nerves II through XII are grossly intact without focal deficits. Motor strength is 5/5 bilaterally. Deep tendon reflexes are 2+ plantar. Assessment/Plan Assessment/Plan ASSESSMENT: This is a 24-year-old male. 1. Left flank pain. 2. Acute diverticulitis. 3. Acute mesenteric panniculitis. 4. History of frequent urinary tract infection. 5. History urethral stricture. TREATMENT: 1. Diverticulitis/mesenteric panniculitis. An Infectious Disease consultation has been obtained with Dr. Enciso. The patient is currently on ceftriaxone and Flagyl. We will follow recommendations of Infectious Diseases. A Gastroenterology consultation obtained with Dr. Bunny Banegas. The patient will require colonoscopy as an outpatient in 8 weeks per GI. 2. Frequent urinary tract infection. The patient is followed as an outpatient by Dr. Bruce with Urology. 3. History of urethral stricture. As above the patient is followed as an outpatient by Dr. Bruce. 4. Discharge home today Noah Hanson MD Jun 15, 2020 13:32
[2020-06-15] MEDS ORDERED: FLAGYL500 MG ORAL (13:37)
[2020-06-15] MEDS ORDERED: LEVOFLOXACIN500 MG ORAL (13:37)
--- NOTE | 2020-06-17 12:17 | Discharge Summary ---
Discharge Summary Discharge Summary _ DATE OF ADMISSION: 06/11/2020 DATE OF DISCHARGE: 06/15/2020 DISCHARGED BY: REASON FOR ADMISSION: 24 years old male with past medical history of urethral stricture and reconstructive bladder surgery, presented with a chief complaint of left flank and left lower quadrant abdominal pain. He denied testicular pain. Symptoms started gradually for the last 10 days. Patient was prescribed Macrobid for presumed urinary tract infection . Due to COVID pandemic patient was unable to follow-up with his urologist. Typically patient had no difficulty with voiding despite the ureteral structure. Patient reported that antibiotic did not help with his symptoms. He also reported associated nausea and anorexia. No fever or chills. No melena , hematochezia or hematuria. Vital signs were unremarkable. Physical exam revealed significant left lower quadrant tenderness and left costovertebral angle tenderness . Laboratory work-up revealed mild leukocytosis WBC 13.2, stable hemoglobin and hematocrit. Stable electrolytes. Stable LFT. Lipase 677. Urinalysis revealed pyuria and few bacteria. Patient received empiric antibiotics. Patient subsequently admitted to medical surgical floor for further management CONSULTANTS: ID specialist Dr. Enciso GI specialist Dr. Banegas [facility] COURSE: Patient admitted to medical surgical floor and started on IV fluids and empiric antibiotics. Urine culture revealed no growth Blood cultures were negative. CT of the abdomen and pelvis revealed acute diverticulitis of the descending sigmoid colon. Mild inflammatory changes. No perforation or abscess. Antibiotics provided as per ID specialist recommendation. Per ID specialist, patient also had a probable UTI despite negative urine culture. Mild leukocytosis eventually resolved. Patient remained afebrile. Patient was on IV antibiotic while in the hospital, and ID specialist recommended transition to oral upon discharge to complete the course. Pain management was addressed. Venous duplex bilateral lower extremity revealed no evidence of acute DVT. DVT prophylaxis provided. Renal parameters and electrolytes were closely monitored. Potassium was replaced. Antiemetic provided as needed. Patient clinically stabilized and was ready for discharge home. FINAL DIAGNOSES: Abdominal pain Acute sigmoid diverticulitis Mesenteric panniculitis Probable UTI History of ureteral stricture History of frequent UTI Obesity DISCHARGE MEDICATIONS: See Medication Reconciliation list. DISCHARGE INSTRUCTIONS: Patient was discharged home Follow-up with a primary care provider in 1 week. I have been assigned to dictate discharge summary for this account. I was not involved in the patient's management. Missy Zuniga NP Jun 17, 2020 12:17
== END 2020-06-15 16:08 | disposition home or self-care (01) | DRG 244 ==
LOC: EMR 16:58 → 3E 19:35 → EDBEDREQ 20:12
DX: K57.20 Diverticulitis of large intestine with perforation and abscess without bleeding (principal); K65.4 Sclerosing mesenteritis; N39.0 Urinary tract infection, site not specified; E66.9 Obesity, unspecified; Z68.36 Body mass index [BMI] 36.0-36.9, adult
CPT/HCPCS: 36415; 74176; 80048; 80053; 81001; 81003; 82248; 83690; 84702; 85025; 85610; 85730; 87040; 87086; 93970; 94664; 96365; 96375; 99285; J2405; J7030; J8499

== ENCOUNTER 2020-10-15 14:30 | Emergency (ER) | payer MEDICAID ==
[~2020-10-15] VITALS: Ht 167.6 cm; Wt 95.3 kg
[~2020-10-15 14:30] MED LIST changes: +FLAGYL500 MG ORAL; +IBUPROFEN600 M1 ORAL; +NITROFURANTOIN100 M2 ORAL
--- NOTE | 2020-10-15 14:53 | NUR ---
ED Nurse Note: pt presents to ED c/o L sided pain onset this AM. pt denies injury or trauma to the area. px radiates into abd and is TTP.
[2020-10-15 14:54] VITALS: BP 120/62
[2020-10-15 15:34] LABS: EOSINOPHILS % (AUTO) 0.7 % (0.0-3.0); HEMATOCRIT 49.6 % (42.0-52.0); HEMOGLOBIN 16.4 G/DL (14.2-18.0); MEAN CORPUSCULAR VOLUME 99 FL (80-99); MONOCYTES % (AUTO) 6.6 % (1.0-10.0); NEUTROPHILS % (AUTO) 81.7 % (45.0-75.0); PLATELET COUNT 215 K/UL (150-450); RED BLOOD COUNT 5.01 M/UL (4.70-6.10); RED CELL DISTRIBUTION WIDTH 11.9 % (11.6-14.8); WHITE BLOOD COUNT 15.1 K/UL (4.8-10.8)
[2020-10-15 15:35] LABS: APPEARANCE,URINE SLIGHTLY CLOUDY; BILIRUBIN, URINE NEGATIVE (NEGATIVE); GLUCOSE, URINE (UA) NEGATIVE (NEGATIVE); KETONES,URINE NEGATIVE (NEGATIVE); LEUKOCYTE ESTERASE ,URINE 1+ (NEGATIVE); NITRITE,URINE NEGATIVE (NEGATIVE); PH,URINE 6 (4.5-8.0); PROTEIN,URINE 2+ (NEGATIVE); UROBILINOGEN,URINE 1 MG/DL (0.0-1.0)
[2020-10-15 15:37] LABS: COLOR,URINE YELLOW
[2020-10-15 15:47] LABS: ANION GAP 7 mmol/L (5-15); BLOOD UREA NITROGEN 11 mg/dL (7-18); CALCIUM 9.3 MG/DL (8.5-10.1); CARBON DIOXIDE 30 MMOL/L (21-32); CHLORIDE 102 MMOL/L (98-107); CREATININE 1.2 MG/DL (0.55-1.30); POTASSIUM 3.9 MMOL/L (3.5-5.1); SODIUM 139 MMOL/L (136-145)
[2020-10-15 15:58] LABS: ALANINE AMINOTRANSFERASE 43 U/L (12-78); ALBUMIN 4.4 G/DL (3.4-5.0); ALBUMIN/GLOBULIN RATIO 1.2 (1.0-2.7); ALKALINE PHOSPHATASE 74 U/L (46-116); ASPARTATE AMINO TRANSFERASE 21 U/L (15-37); BILIRUBIN,TOTAL 1.2 MG/DL (0.2-1.0)
--- NOTE | 2020-10-15 16:08 | Diagnostic Imaging Report ---
Indication: Left-sided abdominal pain onset this morning Technique: Spiral acquisitions obtained through the abdomen and pelvis. No oral contrast utilized, per emergency room physician request No IV contrast utilized, per emergency room physician request.. Multiplanar reconstructions were generated. Total dose length product 616 mGycm. CTDIvol(s) 11 mGy. Dose reduction achieved using automated exposure control Comparison: 06/11/2020 Findings: Lack of enteric contrast limits assessment of the GI tract. There is colonic diverticulosis. There is infiltration of the pericolonic fat adjacent to the distal descending and proximal sigmoid colon, distribution of which is similar to although very slightly distal to that seen previously the extraluminal gas. No organized fluid collection and is ready. There is a small amount of thickening of or fluid along the adjacent fascia. The appendix is normal. No small bowel distention. No free or loculated intraperitoneal gas or fluid is evident. There is very slight increased attenuation of the fat of the mesenteric root. This is also evident previously and unchanged. The distal esophagus, stomach, duodenum are unremarkable. Lack of IV contrast limits assessment of the solid organs. The liver, gallbladder, bile ducts, pancreas, spleen, adrenals, kidneys are unremarkable. No renal or ureter calculi, hydronephrosis, nor hydroureter. The bladder is thick walled. No pelvic mass or adenopathy. There is unusual appearance to the left inguinal region, with an ovoid opacity at the orifice of the inguinal canal and the spermatic cord ending blindly well above the scrotum. The ovoid structure is much more prominent than that seen previously. The included lung bases are clear. The bones demonstrate degenerative spondylosis changes. Impression: Limited assessment of the GI tract, due to lack of enteric contrast administration Evidence of recurrent uncomplicated acute diverticulitis of the descending/sigmoid colon junction Chronic slightly increased attenuation of the fat of the mesenteric root, likely reflecting chronic inflammatory changes On usual appearance of left inguinal region, with blind ending of the spermatic cord and an ovoid opacity at the orifice of the inguinal canal. Suspect that this represents an incompletely descended or nondistended testicle. Correlate with clinical findings The CT scanner at [facility] is accredited by the [employer] and the scans are performed using protocols designed to limit radiation exposure to as low as reasonably achievable to attain images of sufficient resolution adequate for diagnostic evaluation.
--- NOTE | 2020-10-15 16:21 | Emergency Room Report ---
History of Present Illness General Chief Complaint: Pain Source: Patient (Bridger Tipton) Present Illness HPI 25-year-old male history of recurrences of diverticulitis and left-sided undescended testes here complaining of 2 days of left side pain and left lower quadrant pain without any fall or injury. Denies any diarrhea, constipation, nausea vomiting. Denies any blood in stool. Denies fever and chills, cough or congestion, shortness of breath, urinary symptoms. Has not taken medication for symptom relief. Appears to be stable with stable vital signs reported the pain is worse when laying down. Denies alcohol intake, tobacco smoke, marijuana (Bridger Tipton) Allergies: Coded Allergies: No Known Allergies (Unverified , 02/21/17) COVID-19 Screening Contact w/high risk pt: No Experienced COVID-19 symptoms?: No COVID-19 Testing performed GEOGRAPHIC INFORMATION SCIENTIST: No (Bridger Tipton) Patient History Past Medical History: see triage record Past Surgical History: none Pertinent Family History: none Immunizations: UTD Reviewed Nursing Documentation: PMH: Agreed; PSxH: Agreed (Bridger Tipton) Nursing Documentation-PMH Past Medical History: No History, Except For Hx Cardiac Problems: No - urethral stricture surgery 06/16/17 Hx Hypertension: No Hx Pacemaker: No Hx Asthma: No Hx COPD: No Hx Diabetes: No Hx Cancer: No Hx Gastrointestinal Problems: No Hx Dialysis: No - UTI Hx Neurological Problems: No Hx Cerebrovascular Accident: No Hx Seizures: No (Bridger Tipton) Review of Systems All Other Systems: negative except mentioned in HPI (Bridger Tipton) Physical Exam Vital Signs Date Time Temp Pulse Resp B/P (MAP) Pulse Ox O2 Delivery O2 Flow Rate FiO2 10/15/20 14:36 97.7 87 16 120/62 (81) 99 Room Air Sp02 EP Interpretation: reviewed, normal General Appearance: no apparent distress, alert, GCS 15, non-toxic Head: normocephalic, atraumatic Eyes: bilateral eye normal inspection, bilateral eye PERRL ENT: hearing grossly normal, normal pharynx, no angioedema, normal voice Neck: full range of motion, supple/symm/no masses Respiratory: chest non-tender, lungs clear, normal breath sounds, speaking full sentences Cardiovascular #1: regular rate, rhythm, no edema Gastrointestinal: normal bowel sounds, non tender, soft, no mass, non- distended, no rebound, guarding - Left lower quadrant Genitourinary: no CVA tenderness Musculoskeletal: back normal Neurologic: alert, motor strength/tone normal, oriented x3, sensory intact, responsive, speech normal Psychiatric: judgement/insight normal, memory normal, mood/affect normal, no suicidal/homicidal ideation Skin: no rash Lymphatic: no adenopathy (Bridger Tipton) Medical Decision Making PA Attestation All diagnoses and treatment plans were reviewed and discussed with my supervising physician Dr. Payne (Bridger Tipton) Diagnostic Impression: Primary Impression: Diverticulitis Additional Impression: UTI (urinary tract infection) Qualified Codes: N30.00 - Acute cystitis without hematuria ER Course 25-year-old male history of recurrences of diverticulitis and left-sided undescended testes here complaining of 2 days of left side pain and left lower quadrant pain without any fall or injury. Denies any diarrhea, constipation, nausea vomiting. Denies any blood in stool. Denies fever and chills, cough or congestion, shortness of breath, urinary symptoms. Has not taken medication for symptom relief. Appears to be stable with stable vital signs reported the pain is worse when laying down. Denies alcohol intake, tobacco smoke, marijuana Ddx considered but are not limited to: appendicitis, cholecystis, gastritis, gastroenteritis, UTI, pyelonephritis, SBO, diverticulitis, renal stone Vital signs: are WNL, pt. is afebrile H&PE are most consistent with: UTI, diverticulitis uncomplicated ORDERS: abdominal CT, CBC, CMP, UA, Tylenol 3, Cipro and Flagyl ED INTERVENTIONS: None required at this time. DISCHARGE: At this time pt. is stable for d/c to home. Will provide printed patient care instructions, and any necessary prescriptions. Care plan and follow up instructions have been discussed with the patient prior to discharge. Patient to follow primary doctor for referral to bilingual customer service specialist, take medication as directed, follow-up with urologist regards to undescended testes in the left side. If worsening symptom return to the emergency room (Bridger Tipton) ER Course This case was discussed in detail. I agree with treatment plan and disposition. (Mihir Payne MD) CT/MRI/US Diagnostic Results CT/MRI/US Diagnostic Results : Imaging Test Ordered: CT abdomen pelvis without contrast Impression Recurrences of uncomplicated diverticulitis, left-sided undescended testes (Bridger Tipton) Last Vital Signs Date Time Temp Pulse Resp B/P (MAP) Pulse Ox O2 Delivery O2 Flow Rate FiO2 10/15/20 14:54 97.7 86 16 120/62 99 Room Air (Bridger Tipton) Last Vital Signs Date Time Temp Pulse Resp B/P (MAP) Pulse Ox O2 Delivery O2 Flow Rate FiO2 10/15/20 16:30 97.7 86 16 120/62 99 Room Air (Mihir Payne MD) Disposition: HOME, SELF-CARE Condition: Stable Scripts Acetaminophen With Codeine (T#3) (TYLENOL #3 TAB*) Y Tab 1 TAB ORAL Q8HR PRN for For Pain for 3 Days, #9 TAB Prov: Bridger Tipton 10/15/20 Metronidazole* (FLAGYL*) 500 Mg Tablet 500 MG ORAL BID for 10 Days, #20 TAB Prov: Bridger Tipton 10/15/20 Ciprofloxacin Hcl* (CIPROFLOXACIN HCL*) 500 Mg Tablet 500 MG ORAL EVERY 12 HOURS for 14 Days, #20 TAB 0 Refills Prov: Bridger Tipton 10/15/20 Referrals: [facility],REFERRING (PCP) Patient Instructions: Diverticulitis, [id number], Urinary Tract Infection Additional Instructions: Take medication as directed, follow primary care provider, if worsening symptoms return to the emergency room Bridger Tipton Oct 15, 2020 16:21 Mihir Payne MD Oct 16, 2020 03:58
[2020-10-15] MEDS ORDERED: ACETAMINOPHEN-1 EAC1 ORAL (16:22)
[2020-10-15] MEDS ORDERED: CIPROFLOXACIN500 M2 ORAL (16:22)
[2020-10-15] MEDS ORDERED: METRONIDAZOLE500 MG ORAL (16:22)
[2020-10-15 16:30] VITALS: BP 120/62
--- NOTE | 2020-10-15 16:30 | NUR ---
ER DISCHARGE NOTE: Patient is cleared to be discharged per ERMD, pt is aox4, on room air, with stable vital signs. pt was given dc and prescription instructions, pt was able to verbalize understanding, pt id band removed without complications. pt is able to ambulate with steady gait. pt took all belongings.
== END 2020-10-15 16:30 | disposition home or self-care (01) ==
LOC: EMR 16:08
DX: K57.92 Diverticulitis of intestine, part unspecified, without perforation or abscess without bleeding (principal); N30.00 Acute cystitis without hematuria; Q53.10 Unspecified undescended testicle, unilateral
CPT/HCPCS: 36415; 74176; 80053; 81003; 82248; 85025; Z7502; 99284